=== PATIENT | female | born 1945 | race Two or more races ===

== ENCOUNTER 2025-05-12 10:21 | Emergency (ER) | payer MEDICARE, BC ==
[~2025-05-12] VITALS: Ht 162.6 cm; Wt 73.9 kg
[2025-05-12] MEDS ORDERED: ACETAMINOPHEN ES 500 MG TABLET ONE (10:49)
[2025-05-12] MEDS: ACETAMINOPHEN ES 500 MG TABLET PO ONE (10:58)
[2025-05-12 13:41] VITALS: BP 130/78; TEMP 98; O2SAT 96
== END 2025-05-12 13:57 | disposition home or self-care (01) ==
LOC: ER 10:30
DX: S13.4XXA Sprain of ligaments of cervical spine, initial encounter (principal); S29.012A Strain of muscle and tendon of back wall of thorax, initial encounter; Z88.5 Allergy status to narcotic agent; V49.19XA Passenger injured in collision with other motor vehicles in nontraffic accident, initial encounter; Y93.89 Activity, other specified; Y92.415 Exit ramp or entrance ramp of street or highway as the place of occurrence of the external cause; Y99.8 Other external cause status
CPT/HCPCS: 71045-TC; 72074-TC